=== PATIENT | female | born 1990 | race Hispanic/Latino ===

== ENCOUNTER 2019-02-13 19:26 | Emergency (ER) | payer SELFPAY ==
[~2019-02-13] VITALS: Ht 160 cm; Wt 70.0 kg
[2019-02-13] MEDS ORDERED: AMOXICILLIN875 MG PO (21:04)
[2019-02-13 21:30] VITALS: BP 131/71
== END 2019-02-13 21:30 | disposition home or self-care (01) | DRG 153 ==
LOC: ED 19:26
DX: J02.0 Streptococcal pharyngitis (principal); R50.9 Fever, unspecified